=== PATIENT | female | born 1995 | race American Indian/Alaskan Native ===

== ENCOUNTER 2016-11-20 12:30 | Emergency (ER) | payer SELFPAY | END 2016-11-20 14:58 | disposition left against medical advice (07) | LOC: ED 12:30 | DX: N93.9 Abnormal uterine and vaginal bleeding, unspecified (principal); R10.9 Unspecified abdominal pain; Z53.21 Procedure and treatment not carried out due to patient leaving prior to being seen by health care provider ==

== ENCOUNTER 2017-12-04 15:35 | Emergency (ER) | payer SELFPAY ==
[2017-12-04 15:44] VITALS: BP 113/61
[2017-12-04 16:18] LABS: HCG Qualitative,Urine Positive (Negative)
[2017-12-04 16:19] LABS: Bacteria,Urine 2+ /HPF (Negative); Bilirubin,Urine NEG (Negative); Blood,Urine NEG (Negative); Color,Urine Yellow (Yellow); Protein,Urine <15 mg/dL mg/dL (Negative); Urobilinogen,Urine < 2.0 mg/dL (<2.0)
--- NOTE | 2017-12-04 16:52 | Emergency Department Report ---
Blank Doc - Documentation Documentation: Patient is a 22-year-old black female was presented with low abdominal cramps and vaginal discharge. Patient states he simply present for 2-3 days. Patient denies any dysuria or urinary frequency at this time. Patient also states in the same time frame she's had a sore throat. Patient states it hurts to swallow. Urinalysis shows patient has a urinary tract infection as well as that she is . Patient states last menstrual period was last month and was normal. Patient will have a Quant ordered ultrasound to rule out ectopic and a rapid strep performed.
[2017-12-04] MEDS ORDERED: TYLENOL ONE (19:41)
[2017-12-04] MEDS ORDERED: TYLENOL PO ONE (19:42)
[2017-12-04] MEDS ORDERED: LIDOCAINE VISCOUS 2% ONE (19:42)
[2017-12-04] MEDS ORDERED: LIDOCAINE VISCOUS 2% PO ONE (19:42)
--- NOTE | 2017-12-04 20:56 | Ultrasound Report ---
FINAL REPORT PROCEDURE: US OB TRANSVAGINAL and transabdominal TECHNIQUE: Real-time transabdominal and transvaginal sonography of the uterus, placenta, amniotic fluid, adnexa, and fetus was performed with image documentation. Measurements were obtained to determine age/size. M-mode Doppler was used to document heartbeat. CPT 95403 and 46831 HISTORY: lower abd pain, new dx COMPARISON: No prior studies are available for comparison. FINDINGS: Uterus measures 9.8 x 5.6 x 6.6 centimeters. There is a twin intrauterine present, with 2 gestational sacs and a thick membrane the gestational sacs, suggesting dichorionic diamniotic . Twin A: CRL: 6.1 mm, which corresponds to a gestational age of: 6 weeks, 3 days. Yolk Sac: Normal. Embryonic Cardiac Activity: 127 beats per minute Gestational Sac: Normal. Amniotic fluid: Normal. Twin B: CRL: 6.1 mm, which corresponds to a gestational age of: 6 weeks, 3 days. Yolk Sac: Normal. Embryonic Cardiac Activity: 108 beats per minute Gestational Sac: Normal. Amniotic fluid: Normal. Cervix: Normal. Right Ovary: Not visualized Left Ovary: 2 centimeter complex cystic lesion is present Estimated delivery date: 07/27/2018 IMPRESSION: 1. Twin live intrauterine gestation at approximately 6 weeks, 3 days. 2. EDC by US 07/27/2018 3. Complete anatomic survey at 18-20 weeks suggested.
--- NOTE | 2017-12-04 20:57 | Ultrasound Report ---
FINAL REPORT US OB TRANSVAGINAL and transabdominal TECHNIQUE: Real-time transabdominal and transvaginal sonography of the uterus, placenta, amniotic fluid, adnexa, and fetus was performed with image documentation. Measurements were obtained to determine age/size. M-mode Doppler was used to document heartbeat. CPT 71245 and 59152 HISTORY: lower abd pain, new dx COMPARISON: No prior studies are available for comparison. FINDINGS: Uterus measures 9.8 x 5.6 x 6.6 centimeters. There is a twin intrauterine present, with 2 gestational sacs and a thick membrane the gestational sacs, suggesting dichorionic diamniotic . Twin A: CRL: 6.1 mm, which corresponds to a gestational age of: 6 weeks, 3 days. Yolk Sac: Normal. Embryonic Cardiac Activity: 127 beats per minute Gestational Sac: Normal. Amniotic fluid: Normal. Twin B: CRL: 6.1 mm, which corresponds to a gestational age of: 6 weeks, 3 days. Yolk Sac: Normal. Embryonic Cardiac Activity: 108 beats per minute Gestational Sac: Normal. Amniotic fluid: Normal. Cervix: Normal. Right Ovary: Not visualized Left Ovary: 2 centimeter complex cystic lesion is present Estimated delivery date: 07/27/2018 IMPRESSION: 1. Twin live intrauterine gestation at approximately 6 weeks, 3 days. 2. EDC by US 07/27/2018 3. Complete anatomic survey at 18-20 weeks suggested. PROCEDURE: TECHNIQUE: HISTORY: COMPARISON: FINDINGS: IMPRESSION:
--- NOTE | 2017-12-04 20:57 | Ultrasound Report ---
FINAL REPORT US OB TRANSVAGINAL and transabdominal TECHNIQUE: Real-time transabdominal and transvaginal sonography of the uterus, placenta, amniotic fluid, adnexa, and fetus was performed with image documentation. Measurements were obtained to determine age/size. M-mode Doppler was used to document heartbeat. CPT 87167 and 10847 HISTORY: lower abd pain, new dx COMPARISON: No prior studies are available for comparison. FINDINGS: Uterus measures 9.8 x 5.6 x 6.6 centimeters. There is a twin intrauterine present, with 2 gestational sacs and a thick membrane the gestational sacs, suggesting dichorionic diamniotic . Twin A: CRL: 6.1 mm, which corresponds to a gestational age of: 6 weeks, 3 days. Yolk Sac: Normal. Embryonic Cardiac Activity: 127 beats per minute Gestational Sac: Normal. Amniotic fluid: Normal. Twin B: CRL: 6.1 mm, which corresponds to a gestational age of: 6 weeks, 3 days. Yolk Sac: Normal. Embryonic Cardiac Activity: 108 beats per minute Gestational Sac: Normal. Amniotic fluid: Normal. Cervix: Normal. Right Ovary: Not visualized Left Ovary: 2 centimeter complex cystic lesion is present Estimated delivery date: 07/27/2018 IMPRESSION: 1. Twin live intrauterine gestation at approximately 6 weeks, 3 days. 2. EDC by US 07/27/2018 3. Complete anatomic survey at 18-20 weeks suggested. PROCEDURE: TECHNIQUE: HISTORY: COMPARISON: FINDINGS: IMPRESSION:
--- NOTE | 2017-12-04 21:48 | Emergency Department Report ---
ED Female HPI - General Chief complaint: Abdominal Pain Stated complaint: STOMACH, THROAT PAIN Time Seen by Provider: 12/04/17 16:44 Source: patient Mode of arrival: Ambulatory Limitations: No Limitations - History of Present Illness Initial comments: This is a 22-year-old female nontoxic, well nourished in appearance, no acute signs of distress presents to the ED with c/o of abdominal cramps and vaginal discharge x3 days. Patient stated last menstrual cycle was last month. Patient also stated has a sore throat. Patient denies any difficulty swallowing or drooling. Patient denies any other urinary symptoms. Patient states she is concerned about a bacterial vaginosis. Patient stated abdominal cramping is in the pelvic region. Patient denies any chest pain, nausea, vomiting, shortness of breathe, fever, chills, back pain, numbness, tingling, headache or stiff neck. Patient denies any vaginal bleeding. Patient denies any allergies or significant past medical history. MD Complaint: vaginal discharge, other -: days(s) (3) Radiation: non-radiating Severity: mild Severity scale (0 -10): 8 Quality: cramping Consistency: intermittent Improves with: none Worsens with: none Are you Now?: Yes Last Menstrual Period: 11/13/17 EDC: 08/20/18 Associated Symptoms: vaginal discharge, abdominal pain (cramping). denies: vaginal bleeding, nausea/vomiting, fever/chills, headaches, loss of appetite, dysuria, hematuria, rash, seizure, shortness of breath, syncope, weakness - Related Data Sexually active: Yes : 3 Para: 1 Previous Rx's Medication Instructions Recorded Last Taken Type Ibuprofen [Motrin] 400 mg PO Q8H PRN #30 tablet 10/06/16 Unknown Rx Ondansetron [Zofran Odt] 4 mg PO Q8HR PRN #20 tab.rapdis 10/06/16 Unknown Rx traMADol [Ultram 50 MG tab] 50 mg PO Q6HR PRN #20 tablet 10/06/16 Unknown Rx Nitrofurantoin Monohyd/M-Cryst 100 mg PO Q12H #14 capsule 12/04/17 Unknown Rx [Macrobid 100 mg Capsule] metroNIDAZOLE [Flagyl] 500 mg PO Q12HR #14 tab 04/18/18 Unknown Rx Allergies Allergy/AdvReac Type Severity Reaction Status Date / Time No Known Allergies Allergy Unverified 02/04/16 15:16 ED Review of Systems ROS: Stated complaint: STOMACH, THROAT PAIN Other details as noted in HPI Constitutional: denies: chills, fever Eyes: denies: eye pain, eye discharge, vision change ENT: denies: ear pain, throat pain Respiratory: denies: cough, shortness of breath, wheezing Cardiovascular: denies: chest pain, palpitations Endocrine: no symptoms reported Gastrointestinal: abdominal pain. denies: nausea, diarrhea Genitourinary: discharge. denies: urgency, dysuria Musculoskeletal: denies: back pain, joint swelling, arthralgia Skin: denies: rash, lesions Neurological: denies: headache, weakness, paresthesias Psychiatric: denies: anxiety, depression Hematological/Lymphatic: denies: easy bleeding, easy bruising ED Past Medical Hx - Past Medical History Previous Medical History?: Yes Additional medical history: Low BP - Surgical History Past Surgical History?: No - Social History Smoking Status: Never Smoker - Medications Home Medications: Home Medications Medication Instructions Recorded Confirmed Last Taken Type Ibuprofen [Motrin] 400 mg PO Q8H PRN #30 tablet 10/06/16 Unknown Rx Ondansetron [Zofran Odt] 4 mg PO Q8HR PRN #20 tab.rapdis 10/06/16 Unknown Rx traMADol [Ultram 50 MG tab] 50 mg PO Q6HR PRN #20 tablet 10/06/16 Unknown Rx Nitrofurantoin Monohyd/M-Cryst 100 mg PO Q12H #14 capsule 12/04/17 Unknown Rx [Macrobid 100 mg Capsule] metroNIDAZOLE [Flagyl] 500 mg PO Q12HR #14 tab 12/04/17 Unknown Rx ED Physical Exam - General Limitations: No Limitations General appearance: alert, in no apparent distress - Head Head exam: Present: atraumatic, normocephalic - Eye Eye exam: Present: normal appearance Pupils: Present: normal accommodation - ENT ENT exam: Present: normal exam, normal orophraynx, mucous membranes moist, TM's normal bilaterally, normal external ear exam - Neck Neck exam: Present: normal inspection, full ROM. Absent: tenderness, meningismus - Respiratory Respiratory exam: Present: normal lung sounds bilaterally. Absent: respiratory distress, wheezes, rales, rhonchi, stridor - Cardiovascular Cardiovascular Exam: Present: regular rate, normal rhythm, normal heart sounds. Absent: irregular rhythm, systolic murmur, diastolic murmur, rubs, gallop - GI/Abdominal GI/Abdominal exam: Present: soft, normal bowel sounds. 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 Absent: erythema, swelling, lesions, lacerations, ecchymosis , bleeding Speculum exam: Present: normal speculum exam, cervical discharge, other ( billing clerk Yaritza instrument tester present on exam). Absent: erythema, vaginal discharge, vaginal bleeding, foreign body, tissue, laceration Bi-manual exam: Present: normal bi-manual exam, other (billing clerk [employer]aritza instrument tester present on exam). Absent: cervical motion tendernes, adnexal tenderness, adnexal mass, uterine enlargement, uterine tenderness - Extremities Exam Extremities exam: Present: normal inspection, full ROM, normal capillary refill. Absent: tenderness - Back Exam Back exam: Present: normal inspection, full ROM. Absent: tenderness, CVA tenderness (L), muscle spasm, paraspinal tenderness, vertebral tenderness, rash noted - Neurological Exam Neurological exam: Present: alert, oriented X3, normal gait - Psychiatric Psychiatric exam: Present: normal affect, normal mood - Skin Skin exam: Present: warm, dry, intact, normal color. Absent: rash ED Course Vital Signs 12/04/17 15:39 Temperature 99.2 F Pulse Rate 107 H Respiratory 18 Rate Blood Pressure 113/61 O2 Sat by Pulse 99 Oximetry - Reevaluation(s) Reevaluation #1: 12/04/17 21:51 Patient is speaking in full sentences with no signs of distress noted. - Consultations Consultation #1: 12/04/17 21:55 Patient has been consulted with Dr. Gibson about patient history, physical exam , and labs/US report and examined and screened patient and agrees to ED plan of care and discharge plan of care. ED Medical Decision Making - Medical Decision Making This is a 22-year-old female that presents with positive , UTI, and BV. Patient is stable and was examined by me and Dr. Gibson. UA indicates a slight UTIs patient is discharged with Macrobid and Flagyl. Gonorrhea chlamydia pending and patient states she is not concerned so no apparent treatment has been provided. A wet prep obtained. Ultrasound obtained and dictated by the radiologist. HCG quantitative obtained. Negative vaginal bleeding. Patient is notified of the ultrasound report with noted but the patient. Upon examination there is no abdominal tenderness or distention. Patient is discharged with Macrobid. Patient was referred to Follow-up with a GERIATRIC AIDE in 3-5 days or if symptoms worsen and continue return to emergency room as soon as possible. At time of discharge, the patient does not seem toxic or ill in appearance. No acute signs of distress noted. Patient agrees to discharge treatment plan of care. No further questions noted by the patient. Critical care attestation.: If time is entered above; I have spent that time in minutes in the direct care of this critically ill patient, excluding procedure time. ED Disposition Clinical Impression: Bacterial vaginosis Qualifiers: Weeks of gestation: less than 8 weeks Qualified Code(s): Z3A.01 - Less than 8 weeks gestation of UTI (urinary tract infection) Qualifiers: Urinary tract infection type: site unspecified Hematuria presence: without hematuria Qualified Code(s): N39.0 - Urinary tract infection, site not specified Disposition: DC- TO HOME OR SELFCARE Is pt being admited?: No Does the pt Need Aspirin: No Condition: Stable Instructions: Bacterial Vaginosis (ED), (ED), Urinary Tract Infection in Women (ED) Additional Instructions: Follow-up with a GERIATRIC AIDE in 3-5 days or if symptoms worsen and continue return to emergency room as soon as possible. Prescriptions: metroNIDAZOLE [Flagyl] 500 mg PO Q12HR #14 tab Nitrofurantoin Monohyd/M-Cryst [Macrobid 100 mg Capsule] 100 mg PO Q12H #14 capsule Referrals: [facility] [Primary Care Provider] - 3-5 Days MAEGAN WINTER MD [Staff Physician] - 3-5 Days [facility] [Provider Group] - 3-5 Days [facility] [Outside] - 3-5 Days Forms: STI Treatment and Prevention, Work/School Release Form(ED)
== END 2017-12-04 23:15 | disposition home or self-care (01) ==
LOC: ED 15:35
DX: O23.41 Unspecified infection of urinary tract in pregnancy, first trimester (principal); O23.591 Infection of other part of genital tract in pregnancy, first trimester; Z3A.01 Less than 8 weeks gestation of pregnancy
CPT/HCPCS: 36415; 76801; 76802; 76817; 81001; 81025; 84702; 87086; 87210; 87591

== ENCOUNTER 2017-12-06 10:06 | Emergency (ER) | payer SELFPAY ==
[2017-12-06 11:08] VITALS: BP 99/60
[2017-12-06 12:31] LABS: Bacteria,Urine 1+ /HPF (Negative); Bilirubin,Urine NEG (Negative); Blood,Urine NEG (Negative); Color,Urine Straw (Yellow); Hyaline Casts,Urine 1 /LPF; Mucus,Urine FEW /HPF; Protein,Urine <15 mg/dL mg/dL (Negative); Urobilinogen,Urine < 2.0 mg/dL (<2.0)
== END 2017-12-06 18:24 ==
LOC: ED 10:06
DX: R30.0 Dysuria (principal); R10.9 Unspecified abdominal pain; Z53.21 Procedure and treatment not carried out due to patient leaving prior to being seen by health care provider
CPT/HCPCS: 81001

== ENCOUNTER 2017-12-10 23:03 | Emergency (ER) | payer SELFPAY | END 2017-12-10 23:20 | disposition left against medical advice (07) | LOC: ED 23:03 | DX: O26.899 Other specified pregnancy related conditions, unspecified trimester (principal); R10.2 Pelvic and perineal pain; Z3A.00 Weeks of gestation of pregnancy not specified; Z53.21 Procedure and treatment not carried out due to patient leaving prior to being seen by health care provider ==